=== PATIENT | male | born 1995 ===

== ENCOUNTER 2017-09-04 13:13 | Emergency (ER) | payer OTHER ==
[2017-09-04] MEDS ORDERED: IBUPROFEN 600 MG TAB PO ONE ×2 (13:40→15:05)
[2017-09-04 15:00] VITALS: BP 109/73
[2017-09-04] MEDS ORDERED: DEXAMETHASONE 1 MG TAB PO ONE (15:05)
[2017-09-04] MEDS ORDERED: DEXAMETHASONE 4 MG TAB PO ONE (15:25)
--- NOTE | 2017-09-04 15:29 | ER Report ---
History and Physical Time Seen By MD: 14:30 Hx. of Stated Complaint: patient reports having sore thraot since yesterday am HPI/ROS This is an otherwise healthy 22-year-old [employer] student who presents to the emergency department with a sore throat and rhinitis since this morning. No fever/chills. Able to take PO. Has not taken any OTC meds. No chest pain or SOB. No abdominal pain Remainder of the 14 system rev: Yes Allergies: Coded Allergies: No Known Drug Allergies (Unverified , 09/04/17) Home Meds No Active Prescriptions or Reported Meds Reviewed Nurses Notes: Yes Hx Smoking: No Smoking Status: Never Smoker Hx Substance Use Disorder: No Constitutional Vital Sign - Last 24 Hours 09/04/17 13:36 Temp 98.5 Pulse 72 Resp 15 B/P (MAP) 116/65 Pulse Ox 97 O2 Delivery Room Air Physical Exam General Appearance: The patient is alert, has no immediate need for airway protection and no current signs of toxicity. Eyes: Pupils equal and round no injection. Respiratory: Chest is non tender, lungs are clear to auscultation. Cardiac: regular rate and rhythm Gastrointestinal: Abdomen is soft and non tender, no masses, bowel sounds normal. Neck: Neck is supple and non tender. Extremities have full range of motion and are non tender. Skin: No rashes or lesions. DIFFERENTIAL DIAGNOSIS: After history and physical exam differential diagnosis was considered for strep throat, DISTRIBUTION TECHNICIAN, RPA, viral pharyngitis Medical Decision Making Data Points Laboratory Hematology Test 09/04/17 13:20 Influenza Virus Type A (PCR) Negative (NEGATIVE) Influenza Virus Type B (PCR) Negative (NEGATIVE) Group A Streptococcus Screen Negative (NEGATIVE) Chemistry Test 09/04/17 13:20 Influenza Virus Type A (PCR) Negative (NEGATIVE) Influenza Virus Type B (PCR) Negative (NEGATIVE) Group A Streptococcus Screen Negative (NEGATIVE) ED Course/Re-evaluation ED Course Normal voice, able to take PO, no fever, strep negative, no DISTRIBUTION TECHNICIAN/RPA. Given decadron for symptoms. Encouraged to continued with ibuprofen for symptomatic relief. Decision to Disposition Date: Sep 04, 2017 Decision to Disposition Time: 15:27 Depart Departure Latest Vital Signs Vital Signs Date Time Temp Pulse Resp B/P (MAP) Pulse Ox O2 Delivery O2 Flow Rate FiO2 09/04/17 13:36 98.5 72 15 116/65 97 Room Air Impression: Primary Impression: Viral pharyngitis Condition: Improved Disposition: HOME OR SELF-CARE New Scripts No Active Prescriptions or Reported Meds Patient Instructions: Pharyngitis (ED) ABDIAS BLACK MD Sep 04, 2017 15:28
== END 2017-09-04 15:44 | disposition home or self-care (01) ==
LOC: ER 13:42 → EDBD 13:42 → ER 15:44
DX: J02.8 Acute pharyngitis due to other specified organisms (principal)
CPT/HCPCS: 87081; 87502; 87880; 99282; J8540